=== PATIENT | female | born 1980 | race Hispanic/Latino ===

== ENCOUNTER 2019-08-17 21:13 | Emergency (ER) | payer OTHER, SELFPAY ==
[2019-08-17] MEDS ORDERED: CEFTRIAXONE 1000 MG/VIAL ONE (22:12)
[2019-08-17] MEDS ORDERED: CETIRIZINE HCL 5 MG TABLET ONE (22:12)
[2019-08-17] MEDS ORDERED: LIDOCAINE 1% MPF 2 ML AMPULE ONE (22:12)
--- NOTE | 2019-08-17 22:37 | ER ---
Nurse's Notes [facility] Name: Margarita Mathew Age: 39 yrs Sex: Female : 1980 Arrival Date: 08/17/2019 Time: 21:19 Bed 15 Private MD: Diagnosis: Mastoiditis and related conditions;Allergic contact dermatitis Presentation: 08/16 21:30 Chief complaint: Patient states: I am having headache started this afternoon. I noticed rr5 last Monday swelling behind my left ear then it went away the next day now it came back and also behind my right ear started to swell too. now I m having this headache. denies cough, SOB, fever. 21:30 Coronavirus screen: Patient denies fever greater than 100.4F, cough, shortness of rr5 breath, or difficulty breathing. Proceed with normal triage process. Ebola Screen: Patient negative for fever greater than or equal to 101.5 degrees Fahrenheit, and additional compatible Ebola Virus Disease symptoms Patient denies exposure to infectious person. Patient denies travel to an Ebola-affected area in the 21 days before illness onset. Initial Sepsis Screen: Does the patient meet any 2 criteria? No. Patient's initial sepsis screen is negative. Does the patient have a suspected source of infection? No. Patient's initial sepsis screen is negative. Risk Assessment: Do you want to hurt yourself or someone else? Patient reports no desire to harm self or others. Onset of symptoms was August 17, 2019. 21:30 Method Of Arrival: Ambulatory rr5 21:30 Acuity: CHIP 4 rr5 Triage Assessment: 21:30 Pain: Pain currently is 5 out of 10 on a pain scale. Pain began gradually, Also rr5 complains of no other associated symptoms. 21:30 Headache History: The patient has had previous headaches and this one is different than rr5 previous episodes. General: Appears in no apparent distress. comfortable, Behavior is calm, cooperative, appropriate for age. 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 - Social history:: Smoking status: unknown Patient uses alcohol, occasionally. Patient/guardian denies using street drugs, tobacco products. Screenin:40 Abuse screen: Denies threats or abuse. Denies injuries from another. Nutritional rr5 screening: No deficits noted. Tuberculosis screening: No symptoms or risk factors identified. Fall Risk None identified. Total Lombardo Fall Scale indicates No Risk (0-24 pts). Assessment: 21:30 General: Appears in no apparent distress. comfortable, Behavior is calm, cooperative, rr5 appropriate for age. 21:30 Pain: Complains of pain in head Pain radiates to right ear and left ear. Neuro: Level rr5 of Consciousness is awake, alert, obeys commands, Oriented to person, place, time, situation, Appropriate for age Reports headache in entire. Cardiovascular: Capillary refill < 3 seconds Patient's skin is warm and dry. Respiratory: Airway is patent Respiratory effort is even, unlabored, Respiratory pattern is regular, symmetrical. GI: No signs and/or symptoms were reported involving the gastrointestinal system. : No signs and/or symptoms were reported regarding the genitourinary system. EENT: swelling noted behind the left ear. Derm: Skin is intact, is healthy with good turgor, Skin temperature is warm. Musculoskeletal: Circulation, motion, and sensation intact. Capillary refill < 3 seconds. 22:10 Reassessment: Patient appears in no apparent distress at this time. No changes from rr5 previously documented assessment. Patient is alert, oriented x 3, equal unlabored respirations, skin warm/dry/pink. 22:55 Reassessment: Patient appears in no apparent distress at this time. Patient is alert, rr5 oriented x 3, equal unlabored respirations, skin warm/dry/pink. discharge instruction given and explained without complaints made, denies SOB pruritus. Vital Signs: 21:30 BP 113 / 75; Pulse 90; Resp 16; Temp 98.9; Pulse Ox 100% ; Weight 52.16 kg; Height 5 rr5 ft. 0 in. (152.40 cm); Pain 5/10; 22:40 BP 111 / 72; Pulse 82; Resp 16; Temp 98.3; Pulse Ox 99% ; rr5 21:30 Body Mass Index 22.46 (52.16 kg, 152.40 cm) rr5 [place] Coma Score: 22:39 Eye Response: spontaneous(4). Verbal Response: oriented(5). Motor Response: obeys snw commands(6). Total: 15. ED Course: 21:19 Patient arrived in ED. mr 21:22 Benson Schmidt, RN is Primary Nurse. rr5 21:29 [facility]C [facility]. snw 21:29 Red Zabala MD is Attending Physician. snw 21:37 Triage completed. rr5 21:40 Arm band placed on right wrist. rr5 21:41 Patient has correct armband on for positive identification. Bed in low position. Call rr5 light in reach. Pulse ox on. NIBP on. 22:56 No provider procedures requiring assistance completed. Patient did not have IV access rr5 during this emergency room visit. Administered Medications: 22:00 Drug: ZyrTEC - Cetirizine 10 mg Route: PO; rr5 22:55 Follow up: Response: No adverse reaction rr5 22:15 Drug: Rocephin (cefTRIAXone) 1 grams Route: IM; Site: right gluteus; rr5 22:54 Follow up: Response: No adverse reaction rr5 Outcome: 22:35 Discharge ordered by . snw 22:56 Discharged to home ambulatory. rr5 22:56 Condition: stable 22:56 Discharge instructions given to patient, Instructed on discharge instructions, follow up and referral plans. medication usage, Demonstrated understanding of instructions, follow-up care, medications, Prescriptions given X 2. 22:59 Patient left the ED. rr5 Signatures: Ann Jordan FNP-C FNP-José Miguel Kumar Mora miguel Benson Schmidt, RN RN rr5 Corrections: (The following items were deleted from the chart) 21:40 21:30 BP 113 / 75; Pulse 90bpm; Resp 16bpm; Pulse Ox 100%; Temp 98.9F; 52.16 kg; Height rr5 5 ft. 0 in.; BMI: 22.4; Pain 8/10; rr5
--- NOTE | 2019-08-17 22:37 | EDPHYS ---
Physician Documentation [facility] Name: Margarita Mathew Age: 39 yrs Sex: Female : 1980 Arrival Date: 08/17/2019 Time: 21:19 Bed 15 Private MD: ED Physician Red Zabala HPI: 08/16 23:50 This 39 yrs old Female presents to ER via Ambulatory with complaints of snw Headache. 23:50 The patient complains of pain to the forehead, right yazidism and left yazidism. The snw patient describes the headache as a pressure. Onset: The symptoms/episode began/occurred gradually, 3 day(s) ago. Associated signs and symptoms: Pertinent positives: redness and tenderness behind left ear . Severity of symptoms: At its worst the pain was mild. The patient has not experienced similar symptoms in the past. It is unknown whether or not the patient has recently seen a physician. pt states she is running daily and feels like the pollen is part of the problem. Pt states she might have been stung by an insect as she ran through a [place] and has seen a lot of catepillars. 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 - Social history:: Smoking status: unknown Patient uses alcohol, occasionally. Patient/guardian denies using street drugs, tobacco products. ROS: 23:49 Constitutional: Negative for fever, chills, and weight loss, Eyes: Negative for injury, snw pain, redness, and discharge, ENT: Negative for injury and discharge, behind left ear with reddened area with pinpoint area like an insect bite, allergic stuffiness with mild headache Neck: Negative for injury, pain, and swelling, Cardiovascular: Negative for chest pain, palpitations, and edema, Respiratory: Negative for shortness of breath, cough, wheezing, and pleuritic chest pain, Abdomen/GI: Negative for abdominal pain, nausea, vomiting, diarrhea, and constipation, Back: Negative for injury and pain, : Negative for injury, bleeding, discharge, and swelling, MS/Extremity: Negative for injury and deformity, Skin: Negative for injury, rash, and discoloration, Neuro: Negative for headache, weakness, numbness, tingling, and seizure, Psych: Negative for depression, anxiety, suicide ideation, homicidal ideation, and hallucinations, Allergy/Immunology: Negative for hives, rash, and allergies. Exam: 23:35 Constitutional: This is a well developed, well nourished patient who is awake, alert, snw and in no acute distress. Head/Face: Normocephalic, atraumatic. Eyes: Pupils equal round and reactive to light, extra-ocular motions intact. Lids and lashes normal. Conjunctiva and sclera are non-icteric and not injected. Cornea within normal limits. Periorbital areas with no swelling, redness, or edema. Neck: Trachea midline, no thyromegaly or masses palpated, and no cervical lymphadenopathy. Supple, full range of motion without nuchal rigidity, or vertebral point tenderness. No Meningismus. Chest/axilla: Normal chest wall appearance and motion. Nontender with no deformity. No lesions are appreciated. Cardiovascular: Regular rate and rhythm with a normal S1 and S2. No gallops, murmurs, or rubs. Normal PMI, no JVD. No pulse deficits. Respiratory: Lungs have equal breath sounds bilaterally, clear to auscultation and percussion. No rales, rhonchi or wheezes noted. No increased work of breathing, no retractions or nasal flaring. Abdomen/GI: Soft, non-tender, with normal bowel sounds. No distension or tympany. No guarding or rebound. No evidence of tenderness throughout. Back: No spinal tenderness. No costovertebral tenderness. Full range of motion. Skin: Warm, dry with normal turgor. Normal color with no rashes, no lesions, and no evidence of cellulitis. MS/ Extremity: Pulses equal, no cyanosis. Neurovascular intact. Full, normal range of motion. Neuro: Awake and alert, GCS 15, oriented to person, place, time, and situation. Cranial nerves II-XII grossly intact. Motor strength 5/5 in all extremities. Sensory grossly intact. Cerebellar exam normal. Normal gait. Psych: Awake, alert, with orientation to person, place and time. Behavior, mood, and affect are within normal limits. 23:35 ENT: External ear(s): are unremarkable, Ear canal(s): swelling, that is minimal, of the left canal, left post auricular area with mild edema, erythema, tenderness, TM's: erythema, that is mild, on the left, Examination of the other ear shows no obvious abnormality, Mouth: is normal, Posterior pharynx: is normal, Voice: is normal. Vital Signs: 21:30 BP 113 / 75; Pulse 90; Resp 16; Temp 98.9; Pulse Ox 100% ; Weight 52.16 kg; Height 5 rr5 ft. 0 in. (152.40 cm); Pain 5/10; 22:40 BP 111 / 72; Pulse 82; Resp 16; Temp 98.3; Pulse Ox 99% ; rr5 21:30 Body Mass Index 22.46 (52.16 kg, 152.40 cm) rr5 [place] Coma Score: 22:39 Eye Response: spontaneous(4). Verbal Response: oriented(5). Motor Response: obeys snw commands(6). Total: 15. MDM: 21:36 Patient medically screened. snw 22:39 Data reviewed: vital signs, nurses notes. Data interpreted: Pulse oximetry: on room air snw is 100 %. Counseling: I had a detailed discussion with the patient and/or guardian regarding: the historical points, exam findings, and any diagnostic results supporting the discharge/admit diagnosis, the need for outpatient follow up, to return to the emergency department if symptoms worsen or persist or if there are any questions or concerns that arise at home. Special discussion: Based on the history and exam findings, there is no indication for further emergent testing or inpatient evaluation. I discussed with the patient/guardian the need to see the primary care provider for further evaluation of the symptoms. Administered Medications: 22:00 Drug: ZyrTEC - Cetirizine 10 mg Route: PO; rr5 22:55 Follow up: Response: No adverse reaction rr5 22:15 Drug: Rocephin (cefTRIAXone) 1 grams Route: IM; Site: right gluteus; rr5 22:54 Follow up: Response: No adverse reaction rr5 Disposition: 08/17 07:00 Co-signature as Attending Physician, Red Zabala MD I agree with the assessment and tw4 plan of care. Disposition: 08/17/19 22:35 Discharged to Home. Impression: Mastoiditis and related conditions, Allergic contact dermatitis. - Condition is Stable. - Discharge Instructions: Allergies, Adult, Contact Dermatitis, Iron-Rich Diet, Mastoiditis, Pediatric, Stress and Stress Management, Rehydration, Adult. - Prescriptions for cefdinir 300 mg Oral capsule - take 2 capsule by ORAL route once daily for 14 days; 28 capsule. Zyrtec 10 mg Oral Tablet - take 1 tablet by ORAL route once daily As needed; 20 tablet. - Work release form, Medication Reconciliation Form, Thank You Letter, Antibiotic Education, Prescription Opioid Use form. - Follow up: Emergency Department; When: As needed; Reason: Worsening of condition. Follow up: Private Physician; When: 2 - 3 days; Reason: Recheck today's complaints, Continuance of care, Re-evaluation by your physician. - Problem is new. - Symptoms are unchanged. - Notes: Be safe! Signatures: Ann Jordan, MEDIA STRATEGIST-C MEDIA STRATEGIST-Csnw Red Zabala MD MD tw4 Benson Schmidt RN RN rr5 Corrections: (The following items were deleted from the chart) 08/16 22:59 22:35 08/17/2019 22:35 Discharged to Home. Impression: Mastoiditis and related rr5 conditions; Allergic contact dermatitis. Condition is Stable. Forms are Medication Reconciliation Form, Thank You Letter, Antibiotic Education, Prescription Opioid Use. Follow up: Emergency Department; When: As needed; Reason: Worsening of condition. Follow up: Private Physician; When: 2 - 3 days; Reason: Recheck today's complaints, Continuance of care, Re-evaluation by your physician. Problem is new. Symptoms are unchanged. snw 23:50 23:48 Constitutional: snw snw
[2019-08-17 23:06] VITALS: BP 111/72; TEMP 98.3; O2SAT 99
== END 2019-08-17 22:59 | disposition home or self-care (01) ==
LOC: ER 21:13
DX: H70.92 Unspecified mastoiditis, left ear (principal); L23.9 Allergic contact dermatitis, unspecified cause; Z88.0 Allergy status to penicillin; Z88.8 Allergy status to other drugs, medicaments and biological substances; F17.210 Nicotine dependence, cigarettes, uncomplicated
CPT/HCPCS: 96372; 99283; J2001

== ENCOUNTER 2021-12-05 01:46 | Emergency (ER) | payer OTHER, SELFPAY ==
[2021-12-05] MEDS ORDERED: FAMOTIDINE 20 MG/2 ML VIAL IV ONE (03:23)
[2021-12-05] MEDS ORDERED: HYDROMORPHONE HCL 0.5 MG/0.5 ML INJ ONE (03:23)
[2021-12-05] MEDS ORDERED: ONDANSETRON 4 MG/2 ML VIAL ONE (03:23)
[2021-12-05 03:32] LABS: Absolute Lymphocytes (CBC) 1.5 K/uL (0.7-4.9); Hematocrit 39.6 % (36.0-45.0); Lymphocytes % 13.3 % (15.3-44.8); MCV 94.9 fL (80-100); MPV 7.1 fL (7.6-11.3); RBC Red Blood Cell Count 4.17 M/uL (3.86-4.86)
[2021-12-05 03:49] LABS: Albumin 4.1 g/dL (3.4-5.0); Bilirubin Total 0.7 mg/dL (0.2-1.0); Potassium 3.3 mmol/L (3.5-5.1); Protein, Total 8.1 g/dL (6.4-8.2)
[2021-12-05 05:21] LABS: Urine Blood Negative (Negative); Urine Glucose Negative (Negative); Urine Protein 2+ (Negative); Urine Specific Gravity 1.025 (1.005-1.030); Urine pH 7.5 (5.0-7.0)
--- NOTE | 2021-12-05 05:25 | EDPHYS ---
Physician Documentation [facility] Name: Margarita Brown Age: 41 yrs Sex: Female : 1980 Arrival Date: 12/05/2021 Time: 01:51 Bed 5 Private MD: ED Physician Balta García HPI: 12/05 06:24 This 41 yrs old Female presents to ER via Wheelchair with complaints of ms3 Abdominal Pain. 06:24 41-year-old female presents for right upper quadrant abdominal pain that began 1 hour ms3 prior to arrival. Patient states pain is a 10/10 and described as stabbing. Patient endorses nausea and vomiting. Patient denies alleviating or inciting factors. Patient states the pain radiates from her front right upper quadrant to her back.. 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 - Social history:: Smoking status: Patient denies any tobacco usage or history of. Patient uses alcohol, occasionally. ROS: 06:24 MS/Extremity: Negative for injury and deformity, Skin: Negative for injury, rash, and ms3 discoloration. 06:24 Constitutional: Negative for fever, and chills. ENT: Negative for injury, pain, and discharge, Neck: Negative for injury, pain, and swelling, Cardiovascular: Negative for chest pain, and palpitations. Respiratory: Negative for shortness of breath, cough, wheezing, and pleuritic chest pain. 06:24 Abdomen/GI: Positive for abdominal pain, nausea. 06:24 All other systems are negative. Exam: 06:24 Constitutional: This is a well developed, well nourished patient who is awake, alert, ms3 and in no acute distress. Head/Face: Normocephalic, atraumatic. Neck: Trachea midline, no cervical lymphadenopathy. Supple, full range of motion without nuchal rigidity, or vertebral point tenderness. No Meningismus. Chest/axilla: Normal chest wall appearance and motion. Nontender with no deformity. Cardiovascular: Regular rate and rhythm with a normal S1 and S2. No gallops, murmurs, or rubs. Normal PMI, no JVD. No pulse deficits. Respiratory: Lungs have equal breath sounds bilaterally, clear to auscultation and percussion. No rales, rhonchi or wheezes noted. No increased work of breathing, no retractions or nasal flaring. 06:24 Abdomen/GI: Inspection: abdomen appears normal, Bowel sounds: normal, Palpation: moderate abdominal tenderness, in the right upper quadrant. 06:24 Back: CVA tenderness, that is moderate, is noted bilaterally. Vital Signs: 02:14 BP 102 / 74; Pulse 75; Temp 98.1; Pulse Ox 100% ; vc1 03:31 BP 95 / 65; kl 04:41 BP 101 / 66; kl MDM: 03:05 Patient medically screened. ms3 06:24 Differential diagnosis: Cholelithiasis Peptic Ulcer Pyelonephritis. ms3 06:24 Data reviewed: vital signs, nurses notes, lab test result(s), radiologic studies, and ms3 as a result, I will discharge patient. Data interpreted: Pulse oximetry: on room air is 100 %. Interpretation: normal. Counseling: I had a detailed discussion with the patient and/or guardian regarding: the historical points, exam findings, and any diagnostic results supporting the discharge/admit diagnosis, lab results, radiology results, the need for outpatient follow up, to return to the emergency department if symptoms worsen or persist or if there are any questions or concerns that arise at home. Special discussion: Based on the patient's Hx, exam, and Dx evaluation, there is no indication for emergent surgery or inpatient Tx. It is understood by the patient/guardian that if the Sx's persist or worsen they need to return immediately for re-evaluation. ED course: On re-evaluation patient is improved, A/O x4, nad, non-toxic, ambulatory in ED, speaking full sentences.. 12/05 02:18 Order name: CBC with Diff; Complete Time: 03:54 ms3 12/05 02:18 Order name: CMP; Complete Time: 03:54 ms3 12/05 02:18 Order name: Lipase; Complete Time: 03:54 ms3 12/05 02:39 Order name: Abdomen Limited US ms12/05 05:22 Order name: Urine Dipstick-Ancillary; Complete Time: 05:22 EDMS 12/05 05:23 Order name: Urine --Ancillary (enter results) ds4 12/05 02:18 Order name: IV Saline Lock; Complete Time: 03:12 ms3 12/05 02:18 Order name: Labs collected and sent; Complete Time: 03:24 ms3 12/05 02:18 Order name: Urine Dipstick-Ancillary (obtain specimen); Complete Time: 05:22 ms3 12/05 02:18 Order name: Urine Test (obtain specimen); Complete Time: 05:22 ms3 Administered Medications: 03:15 Drug: Dilaudid (HYDROmorphone) 0.5 mg Route: IVP; Site: left antecubital; kl 03:32 Follow up: Response: Marked relief of symptoms kl 03:20 Drug: Pepcid (famotidine) 20 mg Route: IVP; Site: left antecubital; kl 03:32 Follow up: Response: Marked relief of symptoms kl 03:24 Drug: Zofran (Ondansetron) 4 mg Route: IVP; Site: left antecubital; kl 03:32 Follow up: Response: Marked relief of symptoms kl Disposition Summary: 12/05/21 05:24 Discharge Ordered Location: Home ms3 Condition: Stable ms3 Diagnosis - Upper abdominal pain, unspecified ms3 Followup: ms3 - With: Neto Sarabia MD - When: 2 - 3 days - Reason: Recheck today's complaints Discharge Instructions: - Discharge Summary Sheet ms3 - Abdominal Pain, Adult ms3 Forms: - Medication Reconciliation Form ms3 - Thank You Letter ms3 - Antibiotic Education ms3 - Prescription Opioid Use ms3 Signatures: Dispatcher [employer] Tasha Rivera RN RN kl Sims, Marcus, DO DO ms3 Renu Campbell RN RN vc1 Corrections: (The following items were deleted from the chart) 06:25 06:24 Constitutional: Negative for fever, and chills. ENT: Negative for injury, pain, ms3 and discharge, Neck: Negative for injury, pain, and swelling, Cardiovascular: Negative for chest pain, and palpitations. Respiratory: Negative for shortness of breath, cough, wheezing, and pleuritic chest pain, ms3 06:25 06:24 Abdomen/GI: Positive for abdominal pain, ms3 ms3
--- NOTE | 2021-12-05 05:25 | ER ---
Nurse's Notes [facility] Name: Margarita Brown Age: 41 yrs Sex: Female : 1980 Arrival Date: 12/05/2021 Time: 01:51 Bed 5 Private MD: Diagnosis: Upper abdominal pain, unspecified Presentation: 12/05 02:08 Chief complaint: Patient states: "My right side hurts top of stomach all the way around vc1 to my back.". Coronavirus screen: Vaccine status: Patient reports receiving the 2nd dose of the covid vaccine. Ebola Screen: No symptoms or risks identified at this time. Onset of symptoms was December 05, 2021 at 01:00. 02:08 Method Of Arrival: Wheelchair vc1 02:08 Acuity: CHIP 3 vc1 05:31 Initial Sepsis Screen: Does the patient meet any 2 criteria? No. Patient's initial as6 sepsis screen is negative. Does the patient have a suspected source of infection? No. Patient's initial sepsis screen is negative. Risk Assessment: Do you want to hurt yourself or someone else? Patient reports no desire to harm self or others. Triage Assessment: 02:11 General: Appears in no apparent distress. uncomfortable, Behavior is calm, cooperative, vc1 appropriate for age. Pain: Complains of pain in right upper quadrant Pain radiates to mid back area Pain currently is 10 out of 10 on a pain scale. Quality of pain is described as sharp, stabbing, Pain began suddenly, Noted to be crying. GI: Abdomen is flat, non-distended, Abd is soft Abdomen is tender to palpation Reports upper abdominal pain, nausea, vomiting. : No deficits noted. Derm: No deficits noted. 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 - Social history:: Smoking status: Patient denies any tobacco usage or history of. Patient uses alcohol, occasionally. Screenin:13 Abuse screen: Denies threats or abuse. Nutritional screening: No deficits noted. vc1 Tuberculosis screening: No symptoms or risk factors identified. 05:32 Fall Risk None identified. as6 Assessment: 03:05 GI: Bowel sounds present X 4 quads. Reports upper abdominal pain, epigastric pain. kl Vital Signs: 02:14 BP 102 / 74; Pulse 75; Temp 98.1; Pulse Ox 100% ; vc1 03:31 BP 95 / 65; kl 04:41 BP 101 / 66; kl ED Course: 01:51 Patient arrived in ED. bp1 01:56 Balta García DO is Attending Physician. ms3 02:09 Triage completed. vc1 03:10 Inserted saline lock: 20 gauge in left antecubital area, using aseptic technique. kl 03:13 Hermann Delgadillo, SIDNEY is Primary Nurse. as6 03:24 CBC with Diff Sent. kl 03:24 CMP Sent. kl 03:24 Lipase Sent. kl 04:10 Abdomen Limited US In Process Unspecified. EDMS 04:41 No apparent distress. Resting quietly. Appears to be sleeping. kl 05:24 Neto Sarabia MD is Referral Physician. ms3 05:27 Arm band placed on. as6 05:31 No provider procedures requiring assistance completed. IV discontinued, intact, as6 bleeding controlled, No redness/swelling at site. Pressure dressing applied. 05:32 Placed in gown. Bed in low position. Call light in reach. Side rails up X2. as6 Administered Medications: 03:15 Drug: Dilaudid (HYDROmorphone) 0.5 mg Route: IVP; Site: left antecubital; kl 03:32 Follow up: Response: Marked relief of symptoms kl 03:20 Drug: Pepcid (famotidine) 20 mg Route: IVP; Site: left antecubital; kl 03:32 Follow up: Response: Marked relief of symptoms kl 03:24 Drug: Zofran (Ondansetron) 4 mg Route: IVP; Site: left antecubital; kl 03:32 Follow up: Response: Marked relief of symptoms kl Medication: 05:32 VIS not applicable for this client. as6 Outcome: 05:24 Discharge ordered by . ms3 05:31 Discharged to home ambulatory, with significant other. as6 05:31 Condition: stable 05:31 Discharge instructions given to patient, Instructed on discharge instructions, follow up and referral plans. Demonstrated understanding of instructions, follow-up care. 05:32 Patient left the ED. as6 Signatures: Dispatcher [employer] Tasha Rivera, RN RN Balta Puente DO DO ms3 Phuong Salazar Ashby, RN RN as6 Renu Campbell RN RN vc1
[2021-12-05 05:42] LABS: Urine Specific Gravity/Preg 1.025 (1.005-1.030)
[2021-12-05 05:48] VITALS: TEMP 98.1; O2SAT 100
[2021-12-05 05:51] VITALS: BP 101/66
--- NOTE | 2021-12-06 13:59 | RAD REPORT ---
EXAM DESCRIPTION: US - Abdomen Exam Limited - 12/05/2021 4:08 am CLINICAL HISTORY: 41 years Female Right upper quadrant pain TECHNIQUE: Limited sonographic imaging of the gallbladder was performed on 12/05/2021 at 4: 00 AM. Comparison: None. FINDINGS: The gallbladder is well distended and normal in appearance.There is no evidence of choleli thiasis. The gallbladder wall measures approximately 3 mm. There is no evidence of pericholecystic fl uid. The common bile duct measures 5 mm in diameter. There is no evidence of biliary ductal dilatatio n. A sonographic Vaughn sign was not evaluated by the technologist. The portal vein is patent. IMPRESSION: Grossly normal sonographic evaluation of the gallbladder. Electronically signed by: Edna Cuenca DO 12/05/2021 4:54 AM CDT Due to temporary technical issues with the PACS/Fluency reporting system, reports are being signed by the in house radiologists without review as a courtesy to insure prompt reporting. The interpreting radiologist is fully responsible for the content of the report.
== END 2021-12-05 05:32 | disposition home or self-care (01) ==
LOC: ER 01:46
DX: R10.11 Right upper quadrant pain (principal); Z88.0 Allergy status to penicillin; Z88.6 Allergy status to analgesic agent; Z88.8 Allergy status to other drugs, medicaments and biological substances
CPT/HCPCS: 85025; 36415; 81025; 81003; 83690; 80053; 76705; J1170; J2405; J3490; 96374; 96375; 99284